=== PATIENT | female | born 1950 | race Caucasian/White ===

== ENCOUNTER 2016-12-05 13:00 | Outpatient (RCR) ==
--- NOTE | 2016-11-19 16:25 | RS.OPPTEV2 ---
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 She had 6 months of radiation and has been having chemotherapy for 1.5 yrs. She has one more treatment to go this month and it will be over. She has MRIs [id number]. The last MRI 3 weeks ago revealed she had swelling around the site of the tumor removal. She sees her neuroncologist this Friday11/22/16. She is falling daily but has had no serious injury. Her coccyx and ribs were injuried in a fall 2-3 wks ago. She has no precautions. She is now using a SW in the home to decrease her falls. She lives alone. Prior Level of Function.....Patient was independent with: ADL's, Self Care, Work /Vocation, Caregiving, Ambulation/Mobility, Community Integration/Access Functional Limitations: Lifting, Carrying, Standing, Bending, Squatting, Ambulation Current Subjective/complaints:: My balance has been getting worse over the past 6 months to a year and I now fall daily. I do not walk at home anymore than I have to unless someone is there visiting with me. Treatment Side (optional): N/A Medical History Medical History: CVA/TIA, Arthritis, Cancer Medical History Comments:: Left hemiparesis from CVA 2001. Surgical History: Other Surgical History Comments:: Brain tumor resection. Carotid endarterectomy, B cataract surgery with lense implants. Hx Home Medications: Aspirin, plavix, metforman, xanax, crestor, pletal, anti- depressant, sleeping pill and naproxen. Pain Assessment - Pain Description Pain Location: Knnes and buttocks but this moves around depending on where she falls. Pain Description: Worst pain now right ischial tuberosity region. Current Pain Intensity: 10/10 Worst Pain Intensity: 10/10 Other Comments regarding Pain:: Pt had difficulty sitting but had relief on pillow. Functional Outcome Measure Tinetti: 10 (64% disability) - G Codes & Severity Modifier G Codes & Modifier: Moblity, Walking & Moving Around: Current - CL. Goal - CK Source of G Code score: Tinetti Gait - Gait Pattern General Gait Pattern Observation: Weaving Gait, Ataxic Gait, Step-to Gait, Decrease Stride Lngth (R) General Muscle Strength: B hips are grossly 4-/5 otherwise throughout the LEs. Sensation - Sensation Sensation Description: Within Normal Limits Balance - Standing Balance Static Standing Balance: Fair Dynamic Standing Balance: Poor - Comments Balance Assessment Comments: Pt would be unable to stand without support without falling. Interventions - Exercise/Activities/Manual Therapy Exercises/Activities: NA Manual Therapy: NA - Other Services Other Treatments/Services: Gait training Treatment Details: Gait training was performed with pt and her friend. FWW was attempted to allow pt advancement of the device without having to pick it up. Pt ambulate with the FWW and SBA-CGA but felt it was too unsafe to be used at home on her hardwood floors. She is continuing to use the SW at home at this time. Ambulation with SC very unsafe and CGA-min assist needed for support due to ataxia. - Charges Total Direct Minutes: 15 Total Treatment Time: 60 Procedures billed for this date of service:: PT Eval (Medium) Gt training Assessment Assessment: Pt has BLE weakness, decreased standing balance, poor activity tolerance and gait deficits with hx of numerous falls. Patient Education: Home Safety, Activity Modification, Education of Plan of Care Rehab Potential: Good Short Term Goals Goal #1: Pt/CG independent in basic HEP. Goal to be met by: 12/06/16 Goal #2: B hip strength 4+/5 for stability Goal to be met by: 12/06/16 Goal #3: Pt reports decrease in falls by 25%. Goal to be met by: 12/06/16 Goal #4: Tinetti balance score . Goal to be met by: 12/06/16 Cardiopulmonary Supervisor Goals Goal #1: BLE strength 5/5 for increased stability. Goal to be met by: 12/27/16 Goal #2: Tinetti balance score / to decrease fall risk. Goal to be met by: 12/27/16 Goal #3: Fall had decreased to no more than 1-2/wk. Goal to be met by: 12/27/16 Goal #4: Independent in HEP for DC to maintain functional level of safety. Goal to be met by: 12/27/16 Plan - Treatment to be Provided Procedures: Therapeutic Exercises, Therapeutic Activity, Gait Training, Manual Therapy, Patient Education Modalities: Cryotherapy, Hot Packs - Treatment Plan Frequency: 3 X week Duration: 6 weeks ORDER # VISITS AND/OR THROUGH DATE: 12/27/2016 - Treatment Code (1) Ataxia Comments: R27.0 (2) Hemiparesis affecting left side as late effect of cerebrovascular accident Comments: I69.354
--- NOTE | 2016-11-25 16:05 | RS.CXNS ---
Date of scheduled appointment: 11/25/16 Type: No Show
--- NOTE | 2016-11-29 15:06 | RS.OPPTDN ---
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 Reports she does walk alone at times in her home with cane or walker. Caregiver states they will get a gait belt and will work in standing exercise. Pain Assessment - Pain Description Pain Location: Knnes and buttocks but this moves around depending on where she falls. Pain Description: Worst pain now right ischial tuberosity region. Current Pain Intensity: does not report or rate pain. Interventions - Exercise/Activities/Manual Therapy Exercises/Activities: [id number] Assisted to standing for marching at handrail with gait belt. Ankle pumps and hip flexion in sitting. Assisted to leg press 30 # 2s/20reps, 15# for ankle pumps 15reps. NEURO [id number] Walking with assist of 2 , gait belt in place, with standard walker, straight cane, and SUPERVISOR LAMP SHADES of 2. Patient works on increasing left hip and knee flexion and ankle df. ADL 12mins Reviewed safety with sneha. Discussed use of gait belt at home , safety awareness, and starting standing alt hip flexion/marching at kitchen counter with assist. Total minutes of Exercise: EX 14mins, Neuro 20mins, ADL 12mins Manual Therapy: NA HOME EXERCISE PROGRAM: Standing hip flexion/marching at kitchen counter with assist from caregiver with use of gait belt. - Charges Total Direct Minutes: 46mins Total Treatment Time: 46mins Procedures billed for this date of service:: EX, NEURO, ADL Assessment: Patient impulsive and need v.c. for safety. She will benefit from LE strengthening and coordination training. Patient Education: Home Exercise Program, Home Safety, Activity Modification Short Term Goals Goal #1: Pt/CG independent in basic HEP. Goal to be met by: 12/06/16 Progress towards Goal:: Progressing Goal #2: B hip strength 4+/5 for stability Goal to be met by: 12/06/16 Goal #3: Pt reports decrease in falls by 25%. Goal to be met by: 12/06/16 Progress towards Goal:: No Change Goal #4: Tinetti balance score 15/28. Goal to be met by: 12/06/16 Rip Machine Operator Goals Goal #1: BLE strength 01/10 for increased stability. Goal to be met by: 12/27/16 Goal #2: Tinetti balance score to decrease fall risk. Goal to be met by: 12/27/16 Goal #3: Fall had decreased to no more than 1-2/wk. Goal to be met by: 12/27/16 Goal #4: Independent in HEP for DC to maintain functional level of safety. Goal to be met by: 12/27/16 Plan PLAN OF CARE EXPIRES ON:: 12/27/16 ORDER # VISITS AND/OR THROUGH DATE: 12/27/2016 PLAN: Continue Plan of Care Comments:: Continue with strengthening and balance/coordination exercises to increase patients safety with functional activities.
--- NOTE | 2016-12-02 16:14 | RS.CXNS ---
Date of scheduled appointment: 12/02/16 Type: Rescheduled (Patient arrived late for appointment and will call to reschedule.)
--- NOTE | 2016-12-05 16:16 | RS.OPPTDN ---
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 Pain Assessment - Pain Description Pain Location: Knnes and buttocks but this moves around depending on where she falls. Pain Description: Worst pain now right ischial tuberosity region. Current Pain Intensity: does not report or rate pain. Interventions - Exercise/Activities/Manual Therapy Exercises/Activities: [id number] Assisted to standing for marching at handrail with gait belt. Ankle pumps and hip flexion in sitting. Assisted to leg press 30 # 3s/10reps. NEURO [id number] Side-stepping, grapevine, and marching. Stepper board for step-ups and lateral step-ups and step-over. Gait trainging with assist of 2, gait belt in place, with straight cane. Verbal cues for safety and cane/step placement. Patient works on increasing left hip and knee flexion and ankle df. Total minutes of Exercise: EX 15mins, NEURO 15mins, GT 10mins Manual Therapy: NA HOME EXERCISE PROGRAM: Standing hip flexion/marching at kitchen counter with assist from caregiver with use of gait belt. - Charges Total Direct Minutes: 40mins Total Treatment Time: 45mins Procedures billed for this date of service:: EX, NEURO, GT Assessment: Patient able to tolerate more strengthening and balance activities today. Patient Education: Home Exercise Program, Home Safety, Activity Modification Short Term Goals Goal #1: Pt/CG independent in basic HEP. Goal to be met by: 12/06/16 Progress towards Goal:: Progressing Goal #2: B hip strength 4+/5 for stability Goal to be met by: 12/06/16 Goal #3: Pt reports decrease in falls by 25%. Goal to be met by: 12/06/16 Progress towards Goal:: No Change Goal #4: Tinetti balance score 15/28. Goal to be met by: 12/06/16 Halfway Goals Goal #1: BLE strength 5/5 for increased stability. Goal to be met by: 12/27/16 Goal #2: Tinetti balance score 19/28 to decrease fall risk. Goal to be met by: 12/27/16 Goal #3: Fall had decreased to no more than 1-2/wk. Goal to be met by: 12/27/16 Goal #4: Independent in HEP for DC to maintain functional level of safety. Goal to be met by: 12/27/16 Plan PLAN OF CARE EXPIRES ON:: 12/27/16 ORDER # VISITS AND/OR THROUGH DATE: 12/27/2016 PLAN: Continue Plan of Care
--- NOTE | 2016-12-10 13:10 | RS.CXNS ---
Date of scheduled appointment: 12/10/16 Type: Cancel Reason for Cancel/NS: Patient had fallen 3 times and cancels today.
== END 2016-12-06 ==
PROVIDERS: ATTEND Neurological Surgery
DX: C71.2 Malignant neoplasm of temporal lobe (principal)

== ENCOUNTER 2016-12-20 13:00 | Outpatient (RCR) ==
--- NOTE | 2016-12-12 14:58 | RS.OPPTDN ---
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 States she is nauseated after walking in the department with help. Following a rest break patient reports feeling better. When patient is finished with therapy she states she feels nauseated again. Patients caregiver states she will have a follow-up with a stroke specialist (neurologist) in [place] next week. Patient and caregiver report she has fallen a few times in the last week. Pain Assessment - Pain Description Pain Location: Knnes and buttocks but this moves around depending on where she falls. Pain Description: Worst pain now right ischial tuberosity region. Current Pain Intensity: does not report or rate pain. Interventions - Exercise/Activities/Manual Therapy Exercises/Activities: [id number] EX. In sitting, LAQ with 3# 4s/5reps and hip flexion 3# 4s/5reps. Isometric hip add, multiple reps. Assisted to standing at walker with assist at gait belt for marching, mini-squats, and toe-ups, with rest breaks between each set. Ankle pumps. Paitent needs frequent breaks and verbal cues. NEURO [id number] Assisted with ambulation with cane and with rolling walker in department. Patient requires assist of 2 today. She is given more frequent cues for safety and demos problems with dynamic balance. V.c. for patient to increase step height and equal length. Total minutes of Exercise: EX 25mins, NEURO 15mins Manual Therapy: NA HOME EXERCISE PROGRAM: Standing hip flexion/marching at kitchen counter with assist from caregiver with use of gait belt. - Charges Total Direct Minutes: 40mins Total Treatment Time: 45mins Procedures billed for this date of service:: EX2, NEURO Assessment: Patient with poor balance today. She has been sick and is still feeling nauseated with walking. She could still benefit from strengthening. Patient Education: Home Safety, Activity Modification Comments: Reviewed safety and possibility of using a rolling walker at home. Short Term Goals Goal #1: Pt/CG independent in basic HEP. Goal to be met by: 12/06/16 Progress towards Goal:: Progressing Goal #2: B hip strength 4+/5 for stability Goal to be met by: 12/06/16 Goal #3: Pt reports decrease in falls by 25%. Goal to be met by: 12/06/16 Progress towards Goal:: No Change Goal #4: Tinetti balance score . Goal to be met by: 12/06/16 Coil Winder Strap Goals Goal #1: BLE strength 5/5 for increased stability. Goal to be met by: 12/27/16 Goal #2: Tinetti balance score to decrease fall risk. Goal to be met by: 12/27/16 Goal #3: Fall had decreased to no more than 1-2/wk. Goal to be met by: 12/27/16 Progress towards goal: Regressing Goal #4: Independent in HEP for DC to maintain functional level of safety. Goal to be met by: 12/27/16 Plan PLAN OF CARE EXPIRES ON:: 12/27/16 ORDER # VISITS AND/OR THROUGH DATE: 12/27/2016 PLAN: Continue Plan of Care
--- NOTE | 2016-12-17 15:54 | RS.OPPTDN ---
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 Her caregiver states he balance seems better the last few days. They report they will be going to [place] tomorrow for follow-up with specialist she has been seeing following stroke. Pain Assessment - Pain Description Pain Location: Knees and buttocks but this moves around depending on where she falls. Pain Description: Worst pain now right ischial tuberosity region. Current Pain Intensity: does not report or rate pain. Interventions - Exercise/Activities/Manual Therapy Exercises/Activities: [id number] EX. In sitting, LAQ with 3# 4s/5reps and hip flexion 3# 3s/10reps. Red theraband for ham curls, 3s/10reps each. Isometric hip add, multiple reps. Assisted to standing at walker with assist at gait belt for marching with 3# each ankle, 2s/10reps with break. Mini-squats, and toe-ups , with rest breaks between each set. Leg press 30#, 3s/10reps. NEURO [id number] Assisted with ambulation with cane and with rolling walker in department. Patient requires assist of 1 today. She is given verbal cues for safety and placement of walker. Patient actively trying to increase step height. Assisted patient with transfer back to car. Total minutes of Exercise: EX 25mins, NEURO 15mins Manual Therapy: NA HOME EXERCISE PROGRAM: Standing hip flexion/marching at kitchen counter with assist from caregiver with use of gait belt. - Charges Total Direct Minutes: 40mins Total Treatment Time: 40mins Procedures billed for this date of service:: EX2, NEURO Assessment: Patient demos increased balance and safety awareness today. Patient Education: Home Safety, Activity Modification Short Term Goals Goal #1: Pt/CG independent in basic HEP. Goal to be met by: 12/06/16 Progress towards Goal:: Progressing Goal #2: B hip strength 4+/5 for stability Goal to be met by: 12/06/16 Progress towards Goal:: Progressing Goal #3: Pt reports decrease in falls by 25%. Goal to be met by: 12/06/16 Progress towards Goal:: Progressing Comments:: Progress this week Goal #4: Tinetti balance score . Goal to be met by: 12/06/16 Long-Term Goals Goal #1: BLE strength 5/5 for increased stability. Goal to be met by: 12/27/16 Goal #2: Tinetti balance score to decrease fall risk. Goal to be met by: 12/27/16 Goal #3: Fall had decreased to no more than 1-2/wk. Goal to be met by: 12/27/16 Progress towards goal: Regressing Goal #4: Independent in HEP for DC to maintain functional level of safety. Goal to be met by: 12/27/16 Progress towards goal: Progressing Plan PLAN OF CARE EXPIRES ON:: 12/27/16 ORDER # VISITS AND/OR THROUGH DATE: 12/27/2016 PLAN: Continue Plan of Care
--- NOTE | 2016-12-20 15:22 | RS.OPPTDN ---
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 They report no falls last 2 weeks. Patient reports her legs are stronger and she is doing better picking up her feet when walking. Pain Assessment - Pain Description Pain Location: Knees and buttocks but this moves around depending on where she falls. Current Pain Intensity: no pain today Interventions - Exercise/Activities/Manual Therapy Exercises/Activities: [id number] EX. In sitting, LAQ with 3# 4s/5reps and hip flexion 3# 3s/10reps. Green theraband for ham curls, 3s/10reps each. Isometric hip add, multiple reps. Assisted to standing at walker with assist at gait belt for marching, mini-squats, and toe-ups, with rest breaks between each set. NEURO [id number] Assisted with ambulation with cane and with rolling walker in department. Worked on standing balance. Worked on challenging balance with sit to stand. Patient requires assist of 2 with amb with cane in hallway on tile. Reviewed safety with turns, transfers from standing to wc, and transfers to car. Reviewed basic exercise and safety with patient and caregiver. Total minutes of Exercise: EX 20mins, NEURO 24mins Manual Therapy: NA HOME EXERCISE PROGRAM: Standing hip flexion/marching at kitchen counter with assist from caregiver with use of gait belt. - Objective Findings Observations,measurements,etc.: Patient improves FOM on Tinetti Gait assessment to 09/04 or 57% deficit (was 09/04 on Eval) - Charges Total Direct Minutes: 44mins Total Treatment Time: 44mins Procedures billed for this date of service:: EX, NEURO2 Assessment: Patient has progressed with gait, reduction in falls, and strength of LE's. Patient Education: Home Exercise Program, Home Safety, Activity Modification Patient demonstrates compliance with HEP?: Yes Short Term Goals Goal #1: Pt/CG independent in basic HEP. Goal to be met by: 12/06/16 Progress towards Goal:: Met Comments:: With help of caregiver Goal #2: B hip strength 4+/5 for stability Goal to be met by: 12/06/16 (70%) Progress towards Goal:: Progressing Comments:: 4 to 4+/5 MMT Goal #3: Pt reports decrease in falls by 25%. Goal to be met by: 12/06/16 (100%) Progress towards Goal:: Met Goal #4: Tinetti balance score . Goal to be met by: 12/06/16 Progress towards Goal:: Progressing Comments:: Increase of 2 points on Tinetti to 09/04 Sharepoint Net Developer Goals Goal #1: BLE strength 5/5 for increased stability. Goal to be met by: 12/27/16 Progress towards goal: Progressing Goal #2: Tinetti balance score to decrease fall risk. Goal to be met by: 12/27/16 Progress towards goal: Progressing Goal #3: Fall had decreased to no more than 1-2/wk. Goal to be met by: 12/27/16 Progress towards goal: Progressing Goal #4: Independent in HEP for DC to maintain functional level of safety. Goal to be met by: 12/27/16 Progress towards goal: Progressing Plan PLAN OF CARE EXPIRES ON:: 12/27/16 ORDER # VISITS AND/OR THROUGH DATE: 12/27/2016 PLAN: Plan for Discharge (Will discharge today as patient will be out of town next week on vacation and orders will . Patient and caregiver with discuss need for additional therapy at next follow-up appointment.)
--- NOTE | 2016-12-27 13:53 | RS.OPPTDC ---
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 Functional Outcome Measure Tinetti: 12 (09/04=57% impairment) - G Codes & Severity Modifier G Codes & Modifier: Mob Goal CK. Mob D/C CK Source of G Code score: Tinetti Assessment Interventions - Exercise/Activities/Manual Therapy Exercises/Activities: NA Manual Therapy: NA HOME EXERCISE PROGRAM: Standing hip flexion/marching at kitchen counter with assist from caregiver with use of gait belt. - Objective Findings Observations,measurements,etc.: Patient demonstrates improved step height, no foot/toe drag. Cont's to sway and deviate from path with use of straight cane. Demonstrates a safer gait pattern with RW. Reports no falls in the last two weeks. - Charges Total Direct Minutes: NA Total Treatment Time: NA Procedures billed for this date of service:: NA Assessment Assessment: Patient shows improvement of safety with gait as she demonstrates improved step height. Patient and caregiver report less falls recently. None in the last two weeks. Patient agrees to stop therapy at this time, as they will be going out of town and orders will run out next week. They report understanding that the patient needs to continue strenthening exercises to maintain her level of function. Short Term Goals Goal #1: Pt/CG independent in basic HEP. Goal to be met by: 12/06/16 Progress towards Goal:: Met Goal #2: B hip strength 4+/5 for stability Goal to be met by: 12/06/16 (70%) Progress towards Goal:: Partially Met Goal #3: Pt reports decrease in falls by 25%. Goal to be met by: 12/06/16 (100%) Progress towards Goal:: Met Goal #4: Tinetti balance score . Goal to be met by: 12/06/16 Progress towards Goal:: Not Met Brake Operator Heavy Duty Goals Goal #1: BLE strength 5/5 for increased stability. Goal to be met by: 12/27/16 Progress towards goal: Partially Met Goal #2: Tinetti balance score 19/28 to decrease fall risk. Goal to be met by: 12/27/16 Progress towards goal: Not Met Goal #3: Fall had decreased to no more than 1-2/wk. Goal to be met by: 12/27/16 Progress towards goal: Met Comments: Met, no falls reported over the last two weeks. Goal #4: Independent in HEP for DC to maintain functional level of safety. Goal to be met by: 12/27/16 Progress towards goal: Met Plan Reason for Discharge:: Maximum Potential Met
== END 2017-01-05 ==
PROVIDERS: ATTEND Neurological Surgery
DX: C71.2 Malignant neoplasm of temporal lobe (principal)

== ENCOUNTER 2017-03-22 01:15 | Emergency (ER) | payer OTHER ==
[2017-03-22 01:28] VITALS: BP 140/71; TEMP 97; BMI 23.8
--- NOTE | 2017-03-22 02:39 | CT ---
EXAM: CT head without contrast. HISTORY: Fall. PROCEDURE: Contiguous axial CT images of the head without contrast. Comparison: None. FINDINGS: There is diffuse cerebral atrophy. The ventricles and basal cisterns are normal in size and configuration. No evidence of mass or midline shift. No intracranial hemorrhage or evidence of new large vessel infarct. There are old bilateral lacunar infarcts. There is right temporal and r ight parietal encephalomalacia with an adjacent craniotomy defect. There is minimal dural calcificat ion adjacent to the craniotomy defect. No extra-axial fluid collection. No skull fracture. There i s partial opacification of the right mastoid air cells. The left mastoid air cells and paranasal si nuses are well-aerated. Impression: No intracranial hemorrhage or skull fracture. Right parietal and right temporal encephalomalacia with adjacent craniotomy defect. Old bilateral lacunar infarcts. Diffuse cerebral atrophy. Right mastoiditis.
--- NOTE | 2017-03-22 02:44 | CT ---
EXAM: CT of the cervical spine without contrast. HISTORY: Fall. PROCEDURE: Contiguous axial CT images of the cervical spine without contrast with coronal and sagit oneyda reformats. FINDINGS: There is normal alignment of the cervical vertebral bodies and facets. The vertebral body heights and intervertebral disc spaces are maintained. There are small posterior osteophytes at C5 -C6. There is mild multilevel facet arthropathy. The C1-2 relationship is maintained. No preverte bral soft tissue abnormality. Impression: No evidence of fracture. Normal alignment of the cervical spine with degenerative changes as described.
--- NOTE | 2017-03-22 03:18 | DI ---
EXAM: Three views left wrist. HISTORY: Fall. FINDINGS: There is an ill-defined nondisplaced fracture through the metaphysis of the distal left ra dius. There is questionable widening of the scapholunate space suspicious for scapholunate disassoci ation. There is diffuse soft tissue swelling in the wrist. Impression: Nondisplaced fracture through the metaphysis of the distal left radius. Questionable widening of the scapholunate space suspicious for scapholunate disassociation. Conside r outpatient MRI for further evaluation if clinically indicated.
--- NOTE | 2017-03-22 03:26 | ED.PDOC ---
General ED Provider: Dr. MICHAEL ALVARADO-ER Chief Complaint: Fall Stated Complaint: i fell--my wrist hurts and my shoulder hurts Time Seen by Physician: 01:20 Mode of Arrival: Walk-In Information Source: Patient, Family Exam Limitations: No limitations Primary Care Provider: DARLYN HARDY Nursing and Triage Documentation Reviewed and Agree: Yes Musculoskeletal Complaint Exam - Upper Extremity Complaint/Exam Location of Pain: Reports: Left, Shoulder, Wrist Mechanism of Injury: Reports: Trauma Onset/Duration: earlier tdoay Symptoms Are: Still present Timing: Constant Episodes Lasting: Hours Initial Severity: Mild Current Severity: Mild Location: Reports: Discrete (left shoulder and left wrist) Character: Reports: Dull, Aching Aggravating: Reports: Movement, Lifting, Flexion, Extension Alleviating: Reports: None Non-Orthopedic Risk Factors: Reports: None DVT Risk Factors: Reports: None Septic Arthritis Risk Factors: Reports: None Related Surgical History: Reports: None Upper Extremity Findings: Present: Swelling, Abnormal contour, Tenderness, Limited range of motion NV Bundle Intact Distal to Injury: Yes Compartment Syndrome Risk Factors: Present: Pain. Absent: Paralysis, Pallor, Pulselessness, Paresthesias Differential Diagnoses: Contusion, Closed Fracure Review of Systems - Review Of Systems Constitutional: Reports: No symptoms Eyes: Reports: No symptoms Ears, Nose, Mouth, Throat: Reports: No symptoms Respiratory: Reports: No symptoms Cardiac: Reports: No symptoms GI: Reports: No symptoms : Reports: No symptoms Musculoskeletal: Reports: Joint pain, Joint swelling Skin: Reports: Dryness Neurological: Reports: No symptoms Endocrine: Reports: No symptoms Hematologic/Lymphatic: Reports: No symptoms All Other Systems: Reviewed and Negative Past Medical History - Past Medical History Previously Healthy: No Endocrine: Reports: Unknown Cardiovascular: Reports: Unknown Respiratory: Reports: Unknown Hematological: Reports: Unknown Gastrointestinal: Reports: Unknown Genitourinary: Reports: Unknown Neuro/Psych: Reports: Unknown Musculoskeletal: Reports: Unknown Cancer: Reports: Unknown Last Menstrual Period: N/A - Surgical History General Surgical History: Reports: Unknown - Family History Family History: Reports: Unknown - Social History Smoking Status: Current every day smoker, Heavy tobacco smoker Hx Substance Use: Yes Alcohol Screening: None Lives: With family Physical Exam - Physical Exam Appearance: Well-appearing Pain Distress: Mild Eyes: HOLDEN, EOMI, Conjunctiva clear ENT: Ears normal Neck: Supple Respiratory: Airway patent Cardiovascular: RRR, Pulses normal, No rub, No murmur GI/: Soft, Nontender, No masses, Bowel sounds normal, No Organomegaly Musculoskeletal: Limited ROM Skin: Warm, Dry, Normal color Neurological: Sensation intact Psychiatric: Affect appropriate, Mood appropriate Interpretation - Radiology Interpretation Radiology Interpretation By: ED Physician Radiology Results: Positive Exam Interpreted: Other (noted radius fx) Procedures - Splinting Location: left wrist Hand-Made Type: Orthoglass Splint: Sugar-tong Pre-Proc Neuro Vasc Exam: Normal Post-Proc Neuro Vasc Exam: Normal Progress: ortho glass spint applied by nursing staff Re-Evaluation - Re-Evaluation Time of Re-Evaluation: 03:30 Status: Improved Vital Signs Stable: Yes Pain Level: 1 Appearance: NAD Lungs: Clear Skin: Warm and Dry Neuro: Alert and Oriented X3 CV: RRR Critical Care Note - Critical Care Note Total Time (mins): 0 Course - Course Orders, Labs, Meds: Orders Category Date Time Status Splint [ED SPLINT APPLICATION] .ONCE EMERGENCY 03/22/17 03:28 Ordered Hydrocodone Bit/Acetaminophen [[place] 5-325] MEDS 03/22/17 03:28 Stat 1 tab PO ONCE STA CT CERVICAL SPINE W/O CONTRAST Stat RADS 03/22/17 01:[address] HEAD W/O CONTRAST Stat RADS 03/22/17 01:34 Completed SHOULDER, LEFT MIN 2V Stat RADS 03/22/17 01:36 Taken WRIST, LEFT 3 VIEWS Stat RADS 03/22/17 01:36 Completed Medications Discontinued Medications Generic Name Dose Route Start Last Admin Trade Name Freq PRN Reason Stop Dose Admin Acetaminophen/Hydrocodone Bitart 1 tab 03/22/17 03:28 [place] 5-325 PO 03/22/17 03:29 ONCE STA Vital Signs: Temp Pulse Resp BP Pulse Ox 03/22/17 01:15 97 F L 88 16 140/71 94 L Departure - Departure Time of Disposition: 03:30 Disposition: HOME SELF-CARE Discharge Problem: Left radial fracture Qualifiers: Encounter type: initial encounter Radius location: distal Fracture type: closed Fracture morphology: unspecified fracture morphology Qualifier Code: ( S52.502A) Unspecified fracture of the lower end of left radius, initial encounter for closed fracture Instructions: Wrist Fracture in Adults (ED) Condition: Good Pt referred to PMD for follow-up: Yes Additional Instructions: keep elevatd tonight--norco mg q 4hrs prn pain #15--stay in splint--f/u with ortho clinic with copy of xrys Allergies/Adverse Reactions: Allergies propoxyphene HCl [From Darvon] Allergy (Unverified 03/22/17 01:25) generic meds Allergy (Uncoded 03/22/17 01:25) steroids Allergy (Uncoded 03/22/17 01:25) Home Medications: Ambulatory Orders Alprazolam [Xanax] 0.25 mg PO PRN PRN 03/22/17 Aspirin [Adult Low Dose Aspirin EC] 81 mg PO DAILY 03/22/17 Dabigatran Etexilate Mesylate [Pradaxa] 75 mg PO DAILY 03/22/17 Escitalopram Oxalate [Lexapro] 10 mg PO DAILY 03/22/17 Insulin Detemir [Levemir] 15 units PO DAILY 03/22/17 Metformin HCl 500 mg PO DAILY 03/22/17 Naproxen 250 mg PO DAILY 03/22/17 Tolterodine Tartrate [Detrol LA] 2 mg PO DAILY 03/22/17 Disposition Discussed With: Patient, Family
[2017-03-22] MEDS ORDERED: NORCO 5-325 PO STA (03:28)
--- NOTE | 2017-03-22 05:46 | DI ---
EXAM: Three views left shoulder. HISTORY: Fall. FINDINGS: The bones are intact with no evidence of fracture. The acromioclavicular joint is maintai cecilia. There is degenerative spurring along the superior margin of the acromioclavicular joint. Evalu ation of the glenohumeral joint is limited without a Y-view. No soft tissue abnormality. Impression: No evidence of fracture. Limited evaluation of the glenohumeral joint as described. Recommend correlation with physical exam. Degenerative change as described.
== END 2017-03-22 03:50 | disposition home or self-care (01) ==
LOC: ED 01:15
DX: S52.502A Unspecified fracture of the lower end of left radius, initial encounter for closed fracture (principal); M25.512 Pain in left shoulder; W19.XXXA Unspecified fall, initial encounter; F17.210 Nicotine dependence, cigarettes, uncomplicated
CPT/HCPCS: 99284